=== PATIENT | male | born 1955 | race Hispanic/Latino ===

== ENCOUNTER 2023-04-07 08:45 | Day surgery (SDC) | payer MEDICARE ==
[~2023-04-07] VITALS: Ht 180.3 cm; Wt 107.5 kg
[~2023-04-07 08:45] MED LIST: ACCUPRIL5 MG; ACTOS15 MG PO; ACYCLOVIR400 MG PO; AMLODIPINE5 MG PO; AMOXICILLIN500 MG PO; CELEBREX400 MG PO; CIPRO XR500 MG PO; CIPROFLOXACN500 MG PO; DILAUDID 2MG2 MG/TA1 PO; DILAUDID2 MG PO; GLYBURIDE5 M1 PO; GLYBURIDE5 MG PO; LISINOPRIL10 MG PO; MENS 50+ PO; METFORMIN500 M1 PO; METFORMIN500 M2 PO; METFORMIN850 MG PO; NAPROSYN500 MG PO; NORVASC PO; NYSTATIN100000 M1 MT; OMEPRAZOLE DR40 MG; OMEPRAZOLE20 M1 PO; OMEPRAZOLE20 MG PO; POTASSIUM CHLO20 ME1 PO; PRILOSEC20 MG PO; PROTONIX40 MG PO; ULTRAM50 M1 PO; ZESTRIL10 M1 PO
[2023-04-07 10:35] VITALS: BP 157/69
== END 2023-04-07 10:44 | disposition home or self-care (01) ==
LOC: ORM 08:45
PROVIDERS: ATTEND Surgery
PROC: 0DBN8ZX Excision of Sigmoid Colon, Via Natural or Artificial Opening Endoscopic, Diagnostic (ICD-10-PCS; principal; 2023-04-07)
DX: Z12.11 Encounter for screening for malignant neoplasm of colon (principal); D12.5 Benign neoplasm of sigmoid colon; K64.8 Other hemorrhoids; K21.9 Gastro-esophageal reflux disease without esophagitis; I10 Essential (primary) hypertension; E11.9 Type 2 diabetes mellitus without complications; Z79.84 Long term (current) use of oral hypoglycemic drugs